=== PATIENT | female | born 2000 | race Caucasian/White ===

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

== ENCOUNTER 2020-02-16 20:53 | Emergency (ER) | payer OTHER ==
[2020-02-16 21:06] VITALS: BP 122/67
--- NOTE | 2020-02-16 22:42 | ER Document Report ---
ED Medical Screen (RME) - General Chief Complaint: OB Problem (<20wks) Stated Complaint: BACK PAIN, MIGRAINES, ABDOMINAL CRAMPING Time Seen by Provider: 02/16/20 22:32 Mode of Arrival: Ambulatory Information source: Patient Notes: Patient is a 19-year-old female comes emergency room complaining of headache. Patient states that she started with vaginal pain approximately 3 weeks ago. She has an TRAUMA SURGEON who is with women's health care. Patient had a ruptured ectopic 3 to 4 months ago. And then she became . She is 15 weeks gestation currently. Patient states she has had some severe pain with intercourse lately. She states that the reason she is here tonight is primarily because of severe headaches that is frontal and behind both eyes. Is makes her nauseous but no vomiting. She also states that her TRAUMA SURGEON has worked her up extensively to include UTI and STDs. She recently had a complete pelvic examination with culture sent out that came back negative for STDs. She has no history of headaches in the past and this is something that is starting to bother her. No lab work is been drawn patient in recent weeks. She has had no vomiting or nausea during this . Patient does state that she had an ectopic rupture 2 to 3 months prior to the . Physical exam: Patient is a well-nourished well-developed 19-year-old female no apparent distress on examination this evening. Cardiac: Patient displays a rate of 76 bpm on monitor with no murmurs auscultated on examination. Lungs: Bilateral breath sounds increased clear to auscultation no rhonchi rales or wheeze heard. Abdomen: In the sitting position patient has bowel sounds present all 4 quadrants nontender throughout. Further evaluation is difficult secondary to patient's and sitting. I have greeted and performed a rapid initial assessment of this patient. A comprehensive ED assessment and evaluation of the patient, analysis of test results and completion of the medical decision making process will be conducted by additional ED providers. Dictation of this chart was performed using voice recognition software; therefore, there may be some unintended grammatical error s. TRAVEL OUTSIDE OF THE [place] IN LAST 30 DAYS: No - Related Data Allergies/Adverse Reactions: adhesive Allergy (Verified 09/03/19 13:40) latex Allergy (Verified 02/16/20 22:17) Home Medications: [email or web address] Past Medical History - Social History Frequency of alcohol use: None Drug Abuse: None Renal/ Medical History: Denies: Hx Peritoneal Dialysis Past Surgical History: Reports: Hx Gynecologic Surgery - eptopic - Immunizations Immunizations up to date: Yes Hx Diphtheria, Pertussis, Tetanus Vaccination: Yes Physical Exam - Vital signs Vitals: Temp Pulse Resp BP Pulse Ox 97.5 F 84 16 122/67 99 02/16/20 21:05 02/16/20 21:05 02/16/20 21:05 02/16/20 21:05 02/16/20 21:05 Course - Vital Signs Vital signs: Temp Pulse Resp BP Pulse Ox 97.5 F 84 16 122/67 99 02/16/20 21:05 02/16/20 21:05 02/16/20 21:05 02/16/20 21:05 02/16/20 21:05
[2020-02-16] MEDS ORDERED: NORMAL SALINE 1000 ML 1,000 ML IV ONE (22:43)
[2020-02-17 01:39] LABS: APPEARANCE,URINE CLOUDY; BILIRUBIN,URINE NEGATIVE (NEGATIVE); COLOR,URINE YELLOW; GLUCOSE, URINE NEGATIVE (NEGATIVE); KETONES,URINE NEGATIVE (NEGATIVE); LEUKOCYTE ESTERASE,URINE TRACE (NEGATIVE); NITRITE,URINE NEGATIVE (NEGATIVE); PROTEIN,URINE NEGATIVE (NEGATIVE); URINE SPECIFIC GRAVITY 1.019
== END 2020-02-17 00:16 | disposition left against medical advice (07) ==
LOC: ER 20:53
DX: O26.892 Other specified pregnancy related conditions, second trimester (principal); R51.9 Headache, unspecified; N94.10 Unspecified dyspareunia; R10.2 Pelvic and perineal pain; R11.0 Nausea; Z87.59 Personal history of other complications of pregnancy, childbirth and the puerperium; Z79.899 Other long term (current) drug therapy; Z3A.15 15 weeks gestation of pregnancy; Z53.20 Procedure and treatment not carried out because of patient's decision for unspecified reasons
CPT/HCPCS: 81001; 87086; 87088; 99281

== ENCOUNTER 2020-02-17 15:25 | Emergency (ER) | payer OTHER ==
[2020-02-17 15:43] VITALS: BP 133/71
--- NOTE | 2020-02-17 16:37 | ER Document Report ---
ED General - General Chief Complaint: Nausea/Vomiting Stated Complaint: HEADACHE Time Seen by Provider: 02/17/20 16:37 TRAVEL OUTSIDE OF THE [place] 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 Patient has had some difficulty with hyperemesis in this but over the past 3 days she has really not been able to eat or take down any fluids. She states that she is felt ectopic 1 to the emergency department from her nauseated enough that she just feels like she can hold onto anything. She states she was here last night but left because she was continuing to vomit and had not been seen. She states that she went to see her DISTRIBUTION ENGINEER provider, [facility] and was told to come here for further IV hydration. Denies any fevers, chills, sore throat, cough, loss of smell or taste, vaginal bleeding. She states sometimes she feels lower abdominal pressure. She has had a confirmed IUP with this . She is about 16 weeks along. She states that she has been on Diclegis and Zofran but they have not been helping at home. - Related Data Allergies/Adverse Reactions: adhesive Allergy (Verified 09/03/19 13:40) latex Allergy (Verified 02/16/20 22:17) Past Medical History - General Information source: Patient - Social History Smoking Status: Never Smoker Frequency of alcohol use: None Drug Abuse: None Family History: None, Reviewed & Not Pertinent Renal/ Medical History: Denies: Hx Peritoneal Dialysis Past Surgical History: Reports: Hx Gynecologic Surgery - eptopic - Immunizations Immunizations up to date: Yes Hx Diphtheria, Pertussis, Tetanus Vaccination: Yes Review of Systems - Review of Systems Constitutional: denies: Chills, Fever EENT: No symptoms reported Cardiovascular: denies: Chest pain, Palpitations, Dizziness, Lightheaded Respiratory: denies: Cough, Short of breath Gastrointestinal: See HPI, Nausea, Vomiting. denies: Diarrhea Genitourinary: No symptoms reported Female Genitourinary: See HPI, Musculoskeletal: No symptoms reported Skin: No symptoms reported Hematologic/Lymphatic: No symptoms reported Neurological/Psychological: Headaches -: Yes All other systems reviewed and negative Physical Exam - Vital signs Vitals: Temp Pulse Resp BP Pulse Ox 98.1 F 73 17 133/71 H 98 02/17/20 15:42 02/17/20 15:42 02/17/20 15:42 02/17/20 15:42 02/17/20 15:42 Interpretation: Normal - Notes Notes: PHYSICAL EXAMINATION: GENERAL: Well-appearing, well-nourished and in no acute distress. HEAD: Atraumatic, normocephalic. EYES: Pupils equal round and reactive to light, extraocular movements intact, sclera anicteric, conjunctiva are normal. ENT: nares patent, oropharynx clear without exudates. Dry mucous membranes. NECK: Normal range of motion, supple without lymphadenopathy LUNGS: Breath sounds clear to auscultation bilaterally and equal. No wheezes rales or rhonchi. HEART: Regular rate and rhythm without murmurs ABDOMEN: Soft, nontender, normoactive bowel sounds. No guarding, no rebound. No masses appreciated. No CVA tenderness bilaterally EXTREMITIES: Normal range of motion, no pitting or edema. No cyanosis. NEUROLOGICAL: No focal neurological deficits. Moves all extremities spontane ously and on command. PSYCH: Normal mood, normal affect. SKIN: Warm, Dry, normal turgor, no rashes or lesions noted. Course - Re-evaluation Re-evalutation: 02/17/20 18:57 Patient is feeling significant better better after Reglan, Benadryl, bag of fluids. heart tones are 160s. She states her headache has gone away and she is now hungry. Provided her with tiff alysia and jomar crackers. We discussed options for her to keep herself hydrated at home. She states that she has enough Zofran at home to help. We will give 1 more bag of fluids and then after that we will discharge home. Her lab work is very reassuring. Did not repeat her urinalysis because the urinalysis from yesterday when she was here was not very impressive. She also had a negative urinalysis at her DISTRIBUTION ENGINEER today. - Vital Signs Vital signs: Temp Pulse Resp BP Pulse Ox 98.1 F 73 17 133/71 H 98 02/17/20 15:42 02/17/20 15:42 02/17/20 15:42 02/17/20 15:42 02/17/20 15:42 - Laboratory Results Result Diagrams: 02/17/20 18:00 02/17/20 18:00 Laboratory Results Interpreted: 02/17/20 02/17/20 18:00 18:00 Absolute Neuts (auto) 8.6 H Seg Neutrophils % 81.6 H AST 52 H ALT 52 H Critical Laboratory Results Reviewed: No Critical Results - Radiology Results Critical Radiology Results Reviewed: No Critical Results Discharge - Discharge Clinical Impression: Hyperemesis arising during Qualifiers: Weeks of gestation: 16 weeks Qualified Code(s): Z3A.16 - 16 weeks gestation of Condition: Stable Disposition: HOME, SELF-CARE Instructions: Hyperemesis Gravidarum ([facility]) Additional Instructions: Follow-up with your DISTRIBUTION ENGINEER in the next week. Return if you have worsening symptoms. Go to the store and get several different options for plain crackers as well as [address]. Take a good electrolyte drink to help you stay hydrated. Propel, vitamin water, Gatorade are all good options. Return if you have worsening symptoms. Use your at home Zofran prescribed by your DISTRIBUTION ENGINEER to aid in your nausea control. Referrals: [facility] [Provider Group] - Follow up in 3-5 days
[2020-02-17] MEDS ORDERED: NORMAL SALINE 1000 ML 1,000 ML IV ONE ×2 (17:07→18:30)
[2020-02-17] MEDS ORDERED: DIPHENHYDRAMINE HCL 50 MG/ML VIAL IV ONE (17:07)
[2020-02-17] MEDS ORDERED: FAMOTIDINE INJ/PF 20 MG/2 ML SDV IV ONE (17:07)
[2020-02-17] MEDS ORDERED: METOCLOPRAMIDE HCL INJ/PF 10 MG/2 ML SDV IV ONE (17:07)
[2020-02-17 18:25] LABS: ABSOLUTE LYMPHOCYTES (AUTO) 1.4 10^3/uL (0.5-4.7); ABSOLUTE MONOCYTES (AUTO) 0.5 10^3/uL (0.1-1.4); ABSOLUTE NEUT (AUTO) 8.6 10^3/uL (1.7-8.2); BASOPHILS % (AUTO) 0.2 % (0-2); EOSINOPHILS % (AUTO) 0.2 % (0-6); HEMATOCRIT 43.6 % (36.0-47.0); HEMOGLOBIN 15.2 g/dL (12.0-15.5); LYMPHOCYTES % (AUTO) 13.3 % (13-45); MEAN CORPUSCULAR HEMOGLOBIN 31.3 pg (27.0-33.4); MEAN CORPUSCULAR HGB CONC 34.8 g/dL (32.0-36.0); MEAN CORPUSCULAR VOLUME 90 fl (80-97); MONOCYTES % (AUTO) 4.7 % (3-13); PLATELET COUNT 193 10^3/uL (150-450); RED BLOOD COUNT 4.87 10^6/uL (3.72-5.28); RED CELL DISTRIBUTION WIDTH 13.5 % (11.5-14.0); SEGMENTED NEUTROPHILS % (AUTO) 81.6 % (42-78); TOTAL CELLS COUNTED % (AUTO) 100 %; WHITE BLOOD COUNT 10.5 10^3/uL (4.0-10.5)
[2020-02-17 18:43] LABS: ALBUMIN 4.4 g/dL (3.7-5.6); ALKALINE PHOSPHATASE 84 U/L (50-135); ANION GAP 9 (5-19); ASPARTATE AMINO TRANSFERASE 52 U/L (5-30); BILIRUBIN,DIRECT 0.2 mg/dL (0.0-0.4); BILIRUBIN,TOTAL 0.8 mg/dL (0.2-1.3); BLOOD UREA NITROGEN 7 mg/dL (7-20); CALCIUM 10.2 mg/dL (8.4-10.2); CARBON DIOXIDE 25 mmol/L (22-30); CHLORIDE 104 mmol/L (98-107); GLUCOSE 83 mg/dL (75-110); POTASSIUM 4.2 mmol/L (3.6-5.0); TOTAL PROTEIN 7.8 g/dL (6.3-8.2)
== END 2020-02-17 19:48 | disposition home or self-care (01) ==
LOC: ER 15:25
DX: O21.0 Mild hyperemesis gravidarum (principal); R51.9 Headache, unspecified; Z3A.16 16 weeks gestation of pregnancy; Z91.040 Latex allergy status
CPT/HCPCS: 99284; 96361; 96374; 96375; 36415; 85025; 80053; J1200; J2765; J7030; S0028